=== PATIENT | female | born 1935 | race Caucasian/White ===

== ENCOUNTER 2016-12-29 18:07 | Observation (INO) | payer OTHER ==
[~2016-12-29] VITALS: Ht 152.4 cm; Wt 49.9 kg
[2016-12-29 19:24] LABS: DEFINITIVE VIEW TRANSMISSION; Hematocrit 34.4 % (36.0-46.0); Hemoglobin 10.3 g/dL (12.2-16.2); Mean Corpuscular Hemoglobin 24.1 pg (28.0-32.0); Mean Corpuscular Hgb Conc. 29.9 g/dL (32.0-36.0); Mean Corpuscular Volume 80.5 fL (80.0-100.0); Mean Platelet Volume 8.2 fL (7.4-10.4); Platelet Count (auto) 461 10^3/uL (140-450); SUSPECT VIEW TRANSMISSION
[2016-12-29 19:30] LABS: Red Cell Distribution Width 26.4 % (11.6-16.0)
[2016-12-29 19:31] LABS: Metamyelocytes % 0; Myelocytes % 0; Promyelocytes % 0; Reactive Lymphocytes 0
[2016-12-29 19:36] LABS: Albumin 2.8 g/dL (3.4-5.0); BUN/Creatinine Ratio 28.8; Bilirubin, Total 0.6 mg/dL (0.2-1.0); Calcium 9.4 mg/dL (8.5-10.1); Magnesium 2.7 mg/dL (1.6-2.6); Potassium 3.8 mmol/L (3.5-5.1); Total Protein 6.3 g/dL (6.4-8.2)
[2016-12-29 20:05] LABS: Allen Test Modified; Base Excess 3.2 mmol/L (-2.0-2.0); Blood 02Sat 98.2 % (96-100); Blood COHb 0.3 % (0.5-1.5); Blood MetHb 0.5 % (0.0-1.5); HCO3 31.3 mmol/L (22-26.0); HHb 1.8 % (0.0-5.0); MODE MASK - SIMPLE; O2Hb 97.4 % (94.0-97.0); PCO2 67.8 mmHg (35.0-45.0); PCO2(T) 67.8 mmHg (35.0-45.0); PO2 147.1 mmHg (80.0-100.0); PO2(T) 147.1 mmHg (80.0-100.0); Sample Type Arterial; pH 7.282 (7.350-7.450)
[2016-12-29] MEDS ORDERED: cefTRIAXone 1GM/50ML D5W 50 ML IV ONE (20:15)
[2016-12-29 20:20] LABS: B-Type Natriuretic Peptide 592.57 pg/mL (0-100)
[2016-12-29] MEDS ORDERED: methylPREDNISolone SOD SUCC 125 MG/2 ML VL IV ONE (20:45)
[2016-12-29] MEDS ORDERED: ASPirin-EC 81 mg tab PO ONE (20:45)
[2016-12-29] MEDS ORDERED: ALBUTEROL SULF 2.5 MG/0.5ML(0.5%) NEB SOLN HHN ONE (20:45)
[2016-12-29] MEDS ORDERED: IPRATROPIUM BROM 0.5 MG/2.5ML INH SOL HHN ONE (20:45)
[2016-12-29 21:52] LABS: Anisocytosis Moderate; Hypochromia Moderate; Ovalocytes MODERATE; Platelet Estimate Increased; Poikilocytosis Slight
[2016-12-30 02:21] VITALS: BP 135/73
== END 2016-12-30 02:30 | disposition short-term general hospital (02) | DRG 190 ==
LOC: EDBD 18:07 → ER 18:18 → OVERFLOW 19:34 → ER 12-30 02:30
PROVIDERS: ADMIT Family Medicine; ATTEND Family Medicine
DX: J44.1 Chronic obstructive pulmonary disease with (acute) exacerbation (principal); I50.43 Acute on chronic combined systolic (congestive) and diastolic (congestive) heart failure; J18.1 Lobar pneumonia, unspecified organism; E87.1 Hypo-osmolality and hyponatremia; I25.10 Atherosclerotic heart disease of native coronary artery without angina pectoris; I11.0 Hypertensive heart disease with heart failure; Z82.49 Family history of ischemic heart disease and other diseases of the circulatory system; Z87.891 Personal history of nicotine dependence; D50.9 Iron deficiency anemia, unspecified; D53.9 Nutritional anemia, unspecified; R74.8 Abnormal levels of other serum enzymes
CPT/HCPCS: 36415; 36600; 71010; 80053; 82805; 83605; 83735; 83880; 84484; 85007; 85027; 87040; 93005; 94640; 96365; 96375; 99281; G0378; J0696; J2930